=== PATIENT | female | born 1995 | race Caucasian/White ===

== ENCOUNTER 2017-06-25 13:23 | Emergency (ER) | payer SELFPAY ==
[2017-06-25 13:46] LABS: #Basophils 0.1 thou/uL (0.0-0.2); #Eosinphils 0.2 thou/uL (0.0-0.7); #Lymphocytes 1.9 thou/uL (1.20-3.40); #Monocytes 0.4 thou/uL (0.11-0.59); #Neutrophils 4.6 thou/uL (1.40-6.50); %Basophils 0.9 % (0.0-1.0); %Eosinophils 2.8 % (0.0-10.0); %Lymphocytes 25.9 % (21.0-51.0); %Monocytes 6.2 % (0.0-10.0); %Neutrophils 64.2 % (42.0-75.0); Hemoglobin 14.1 g/dL (12.0-16.0); Mean Corpuscular HGB CONC 34.8 g/dL (32.0-36.0); Mean Corpuscular Hemoglobin 30.7 pg (27.0-31.0); Mean Corpuscular Volume 88.1 fl (81.0-99.0); Mean Platelet Volume 6.5 fL (7.4-10.4); Platelet Count 277 thou/uL (130-400); RBC Distribution Width 11.9 % (11.5-14.5); Red Blood Cell (RBC) Count 4.59 mill/uL (4.20-5.40); White Blood Cell (WBC) Count 7.2 thou/uL (4.8-10.8)
[2017-06-25 14:10] LABS: ALT (SGPT) 9 U/L (8-55); AST (SGOT) 15 U/L (5-34); Albumin 4.4 g/dL (3.5-5.0); Alkaline Phosphatase 78 U/L (40-150); Anion Gap 12 mmol/L (10-20); BUN (Urea Nitrogen) 9 mg/dL (7.0-18.7); Bilirubin, Total 0.4 mg/dL (0.2-1.2); CK (CPK) 72 U/L (29-168); Calc. Creatinine Clearance 0 mL/min (70-130); Calcium 9.3 mg/dL (7.8-10.44); Carbon Dioxide 24 mmol/L (22-29); Chloride 104 mmol/L (98-107); Estimated GFR-MDRD Greater than 90; Globulin 2.6 g/dL (2.4-3.5); Glucose 89 mg/dL (70-105); Potassium 4.4 mmol/L (3.5-5.1); Sodium 136 mmol/L (136-145)
[2017-06-25 14:15] LABS: CKMB 0.9 ng/mL (0-6.6); Troponin I Less than 0.010 ng/mL (< 0.028)
--- NOTE | 2017-06-25 14:17 | RAD ---
CHEST 1 VIEW: Date: 06/25/17 HISTORY: Dizziness. Fall. COMPARISON: None. FINDINGS: Lungs are clear. No pneumothorax or effusion. Cardiac silhouette and mediastinal contour is within no rmal limits. IMPRESSION: No acute intrathoracic abnormality. POS: JOSEH
[2017-06-25 14:30] LABS: Bilirubin Negative (Negative); Blood, Urine Negative (Negative); Clarity CLEAR (Clear); Glucose, Urine (Dipstick) Negative (Negative); Leukocyte Negative (Negative); Nitrite Negative (Negative); Protein, Urine (Dipstick) Negative (Neg-Trace); Specific Gravity, Urine 1.013 (1.002-1.036); pH, Urine 6.5 (5.0-9.0)
[2017-06-25 14:31] LABS: Pregnancy Test - Urine (BHCG) Negative (Negative); Pregu Control Background? CLEAR/WHITE (CLR/WHITE); Pregu Control Bar Appear? YES (CONTROL BAR); Specific Gravity 1.013 (1.002-1.036)
== END 2017-06-25 15:35 | disposition home or self-care (01) ==
LOC: ERS 13:23
DX: R55 Syncope and collapse (principal); F17.210 Nicotine dependence, cigarettes, uncomplicated; E78.5 Hyperlipidemia, unspecified; Z71.6 Tobacco abuse counseling
CPT/HCPCS: 36415; 71045; 80053; 81003; 81025; 82550; 82553; 84484; 85025; 93005; 99406

== ENCOUNTER → 2018-08-30 | Day surgery (SDC) | payer OTHER ==
[~2018-08-30] MED LIST: Lactated Ringer's 1,000 ML IV SCH; Sodium Chloride 0.9% 1,000 ML IV SCH; cefTRIAXone\\ROCEPHIN 1 GM in Sodium Chloride 0.9% 100 ML IVPB SCH; hydrALAZINE 20 MG/ML VIAL SLOW IVP PRN
[2018-08-30 09:12] VITALS: BMI 31.5
[2018-08-30 09:14] VITALS: BP 110/72; TEMP 98.4
[2018-08-30 10:12] LABS: #Eosinphils 0.2 thou/uL (0.0-0.7); #Lymphocytes 1.5 thou/uL (1.20-3.40); #Monocytes 0.7 thou/uL (0.11-0.59); %Basophils 0.3 % (0.0-1.0); %Eosinophils 1.9 % (0.0-10.0); %Lymphocytes 14.5 % (21.0-51.0); %Monocytes 6.6 % (0.0-10.0); %Neutrophils 76.8 % (42.0-75.0); Hemoglobin 11.5 g/dL (12.0-16.0); Mean Corpuscular HGB CONC 33.9 g/dL (32.0-36.0); Mean Corpuscular Hemoglobin 30.4 pg (27.0-31.0); Mean Corpuscular Volume 89.6 fL (78.0-98.0); Mean Platelet Volume 7.4 fL (7.4-10.4); Platelet Count 257 thou/uL (130-400); RBC Distribution Width 12.6 % (11.5-14.5); Red Blood Cell (RBC) Count 3.78 mill/uL (4.20-5.40); White Blood Cell (WBC) Count 10.5 thou/uL (4.8-10.8)
[2018-08-30 10:24] LABS: Clarity Clear (Clear); Leukocyte Unable to Interpret (Negative); Nitrite Unable to Interpret (Negative)
[2018-08-30 10:25] LABS: Bilirubin Unable to Interpret (Negative); Blood, Urine Unable to Interpret (Negative); Glucose, Urine (Dipstick) Unable to Interpret mg/dL (Negative); Protein, Urine (Dipstick) Unable to Interpret mg/dL (Neg-Trace); Urobilinogen UNABLE TO INTERPRET mg/dL (Less than 2)
[2018-08-30 10:30] LABS: Anion Gap 15 mmol/L (10-20); BUN (Urea Nitrogen) 8 mg/dL (7.0-18.7); Calc. Creatinine Clearance 170 mL/min (70-130); Calcium 9.1 mg/dL (7.8-10.44); Carbon Dioxide 18 mmol/L (22-29); Chloride 108 mmol/L (98-107); Estimated GFR-MDRD Greater than 90; Glucose 87 mg/dL (70-105); Potassium 3.5 mmol/L (3.5-5.1); Sodium 137 mmol/L (136-145)
[2018-08-30 10:40] LABS: Bacteria/HPF 2+ HPF (None Seen); Squamous Epithelial 0-3 HPF (0-3)
--- NOTE | 2018-08-30 10:46 | ULT ---
Exam: Bilateral renal ultrasound HISTORY: History of and right-sided flank pain COMPARISON: CT the abdomen and pelvis dated February 21, 2010 FINDINGS: Right kidney: The right kidney demonstrates an normal cortical echotexture. There is mild right hydro nephrosis. Right kidney measurements: 10.4 x 6.3 x 6.4 cm. Left kidney: Normal cortical echotexture. No hydronephrosis Left kidney measurements: 11.9 x 4.9 x 5.6 cm. Urinary bladder: Normal mucosa. Right ureteral jet is not demonstrated. Left ureteral jet is demonstr ated. There is partial visualization of the intrauterine gestation. The head is in vertex presentation. IMPRESSION: Mild right hydronephrosis. There is nonvisualization of the normal right ureteral jet.
--- NOTE | 2018-08-30 14:36 | PRG ---
DATE OF SERVICE: 08/30/2018 PRIMARY OB: Dr. Stef Agudelo. CHIEF COMPLAINT: Dysuria, urgency, and back pain. HISTORY OF PRESENT ILLNESS: The patient is a 23-year-old, G1, P0 female with an intrauterine at 23 weeks, presenting to Labor and Delivery after being awoken from sleep with urinary urgency and frequency. The patient later in the morning had sudden onset back pain and came for evaluation. The patient denies fever, chills, nausea, and vomiting. The patient does report she was diagnosed of the urinary tract infection approximately 2 or 3 weeks ago and was placed on antibiotics at that time. The patient denies chest pain, shortness of breath, nausea, vomiting, diarrhea, constipation, change in vision, hearing, swelling, edema, chest pain, shortness of breath, hip problems, knee problems, muscle weakness, vaginal bleeding, leakage of fluid. PAST MEDICAL HISTORY: Migraines, history of ovarian cyst. PAST SURGICAL HISTORY: Negative. ALLERGIES: NO KNOWN DRUG ALLERGIES. MEDICATIONS: vitamins. SOCIAL HISTORY: Denies drug, alcohol, tobacco use. Does report former use prior to of cigarettes. OB LABS: Blood type is B positive. Antibody screen is negative. She is rubella nonimmune. RPR is nonreactive. Hepatitis B surface antigen nonreactive. HIV nonreactive. REVIEW OF SYSTEMS: Per HPI. PHYSICAL EXAMINATION: VITAL SIGNS: Blood pressure 100/55, heart rate of 72, respiratory rate 18, saturating 100% on room air, temperature 98.4. GENERAL: She appears to be in no acute distress. She is alert, oriented, cooperative, and pleasant to interact with. HEAD: Normocephalic, atraumatic. LUNGS: Clear to auscultation bilaterally. HEART: Regular rate and rhythm. ABDOMEN: Gravid, soft, nontender. EXTREMITIES: Nontender, nonedematous. She does not have any vertebral tenderness. She has some right-sided paravertebral tenderness and SI joint tenderness. Has equivocal CVA tenderness. heart tracing shows a fetus with heart tones in the 150s and appropriate for 23 weeks gestation. LABORATORY DATA: CBC shows white count of 10.5, hemoglobin 11.5, hematocrit 33.8, and platelets of 257,000, and neutrophil percentage 76.8. BMP; sodium of 137, potassium of 3.5, chloride of 108, creatinine of 0.58, glucose of 87. Urine with 11 to 20 RBCs, 4 to 6 white blood cells, 0 to 3 squamous cells, and 2+ bacteria. ASSESSMENT AND PLAN: The patient is a 23-year-old female with [id number] presenting with a history of urinary tract infection and now recurrent symptoms. Evidence supports a diagnosis of a recurrent urinary tract infection. The patient is at risk for developing pyelonephritis, though she does not have any overt symptoms at this time. We will be treating her with 1 g of Rocephin IV and 2 L of IV fluids, followed by a course of Duricef 1 g b.i.d. for 7 days. The patient will be discharged to home as she is not showing any acute signs or symptoms of concern. She has an appointment to see her primary OB, Dr. Agudelo, tomorrow for followup. The patient has been given counseled that should she experience fever, worsening symptoms to return. I have also explained the importance to follow up with the urine cultures that we sent today to confirm sensitivities. Fetus has a tracing appropriate for gestational age. I have discussed this pt with Dr Agudelo, her primary OB provider. Job ID: [id number]
== END ==
LOC: L&D/OP 08:40
PROVIDERS: ATTEND Obstetrics & Gynecology
DX: O23.02 Infections of kidney in pregnancy, second trimester (principal); N13.6 Pyonephrosis; O99.352 Diseases of the nervous system complicating pregnancy, second trimester; G43.909 Migraine, unspecified, not intractable, without status migrainosus; Z87.891 Personal history of nicotine dependence; Z87.42 Personal history of other diseases of the female genital tract; Z3A.23 23 weeks gestation of pregnancy
CPT/HCPCS: 76770; 80048; 81001; 85025; 87086; 96361; 96365; 99283; J0696; J3490

== ENCOUNTER 2018-12-20 16:49 | Inpatient (IN) | payer OTHER ==
[~2018-12-20 16:49] MED LIST changes: +Bupivacaine 0.25% HCL 30 ML VIAL ONE; -Lactated Ringer's 1,000 ML IV SCH; +Lidocaine 2% MPF 10 ML AMP (For Epidural Use) ONE; -Sodium Chloride 0.9% 1,000 ML IV SCH; -cefTRIAXone\\ROCEPHIN 1 GM in Sodium Chloride 0.9% 100 ML IVPB SCH; -hydrALAZINE 20 MG/ML VIAL SLOW IVP PRN
[2018-12-20] MEDS ORDERED: Ondansetron PF 4 MG/2 ML Vial IVP PRN (17:04)
[2018-12-20] MEDS ORDERED: Ibuprofen 800 MG TAB PO PRN (17:04)
[2018-12-20] MEDS ORDERED: Docusate 100 MG CAP PO PRN (17:04)
[2018-12-20] MEDS ORDERED: hydrALAZINE 20 MG/ML VIAL SLOW IVP PRN (17:04)
[2018-12-20] MEDS ORDERED: NS w/ Oxytocin 10 units 500 ML IV SCH (17:04)
[2018-12-20] MEDS ORDERED: Acetaminophen 500 MG TAB PO PRN (17:04)
[2018-12-20] MEDS ORDERED: HYDROcodone/Acetaminophen 5/325 mg Tablet PO PRN ×2 (17:04)
[2018-12-20] MEDS ORDERED: Diphenoxylate HCl/Atropine Tablet PO PRN ×2 (17:04)
[2018-12-20] MEDS ORDERED: Lidocaine 1% (PF) 30 ML VIAL SC PRN (17:04)
[2018-12-20] MEDS ORDERED: Promethazine HCl 25 MG/ML VIAL IM PRN (17:04)
[2018-12-20] MEDS ORDERED: Zolpidem Tartrate 5 MG TAB PO PRN (17:04)
[2018-12-20] MEDS ORDERED: NS / Oxytocin 40 units/1000ml 1,000 ML IV PRN (17:04)
[2018-12-20] MEDS ORDERED: Misoprostol 200 MCG TAB PR PRN (17:04)
[2018-12-20] MEDS ORDERED: Butorphanol Tartrate 1 MG/ML VIAL SLOW IVP PRN (17:04)
[2018-12-20 17:19] VITALS: BMI 35.9
[2018-12-20] MEDS: Lactated Ringer's 1,000 ML IV SCH (18:03)
[2018-12-20 18:27] LABS: Hemoglobin 10.1 g/dL (12.0-16.0); Mean Corpuscular HGB CONC 32.8 g/dL (32.0-36.0); Mean Corpuscular Volume 73.3 fL (78.0-98.0); Mean Platelet Volume 9.2 fL (7.4-10.4); Platelet Count 257 thou/uL (130-400); RBC Distribution Width 15.7 % (11.5-14.5); Red Blood Cell (RBC) Count 4.19 mill/uL (4.20-5.40); White Blood Cell (WBC) Count 7.7 thou/uL (4.8-10.8)
[2018-12-20] MEDS: Misoprostol 100 MCG TAB VAG SCH (18:31)
[2018-12-20 18:57] LABS: HBSAg Index 0.16 S/CO (0-0.99); Hep B Surf Ag Non-Reactive S/CO (NonReactive)
[2018-12-20 19:00] LABS: Syphilis Antibody Nonreactive (Nonreactive); Syphilis Antibody Index 0.04 S/CO (<1.00 Non-Reactive)
[2018-12-21] MEDS: NS w/ Oxytocin 10 units 500 ML IV SCH (04:20)
[2018-12-21] MEDS: Misoprostol 100 MCG TAB VAG SCH ×5 (07:39→19:24)
[2018-12-21] MEDS ORDERED: Fentanyl 4 mcg/Bup 0.1% Cadd 100 ML ONE ×2 (08:19→16:03)
[2018-12-21] MEDS: Lactated Ringer's 1,000 ML IV SCH ×2 (11:13→11:14)
[2018-12-21] MEDS ORDERED: Acetaminophen 325 MG TAB PO PRN (13:26)
[2018-12-21] MEDS ORDERED: diphenhydrAMINE 50 MG/ML VIAL IVP PRN (13:26)
[2018-12-21] MEDS ORDERED: ePHEDrine/0.9% NaCl/PF SYRINGE 50 mg/10 ml SLOW IVP PRN (13:26)
[2018-12-21] MEDS ORDERED: Naloxone HCl 0.4 mg/ml Vial IVP PRN ×2 (13:26)
[2018-12-21] MEDS ORDERED: Promethazine HCl 25 MG/ML VIAL IM PRN (13:26)
[2018-12-21] MEDS ORDERED: Ondansetron PF 4 MG/2 ML Vial IVP PRN ×2 (13:26→19:43)
[2018-12-21] MEDS ORDERED: Lactated Ringer's 500 ML IV PRN (13:26)
[2018-12-21] MEDS ORDERED: Communication Order-Pharmacy FS SCH (13:30)
[2018-12-21] MEDS ORDERED: Fentanyl 4 mcg/Bupivacaine 0.1% Cassette 100 ML EPIDURAL SCH (13:30)
[2018-12-21] MEDS ORDERED: Fentanyl 100 MCG/2 ML VIAL ONE (15:36)
[2018-12-21] MEDS: NS / Oxytocin 40 units/1000ml 1,000 ML IV SCH ×2 (19:20→21:50)
[2018-12-21] MEDS ORDERED: hydrALAZINE 20 MG/ML VIAL SLOW IVP PRN (19:43)
[2018-12-21] MEDS ORDERED: Zolpidem Tartrate 5 MG TAB PO PRN (19:43)
[2018-12-21] MEDS ORDERED: diphenhydrAMINE 25 MG CAP PO PRN (19:43)
[2018-12-21] MEDS ORDERED: Lanolin Ointment 7 GM TUBE TOP PRN (19:43)
[2018-12-21] MEDS ORDERED: Misoprostol 200 MCG TAB VAG PRN (19:43)
[2018-12-21] MEDS ORDERED: Acetaminophen/Codeine 30-300mg Tablet PO PRN ×2 (19:43)
[2018-12-21] MEDS ORDERED: Bisacodyl 10 MG SUPP PR PRN (19:43)
[2018-12-21] MEDS ORDERED: Milk Of Magnesia 30 ML UDCUP PO PRN (19:43)
[2018-12-21] MEDS ORDERED: Benzocaine-Menthol 82.5 ML CAN TOP PRN (19:43)
[2018-12-21] MEDS ORDERED: Preparation H Ointment 28 GM TUBE PR PRN (19:43)
[2018-12-21] MEDS: Ibuprofen 800 MG TAB PO SCH (23:57)
[2018-12-21] MEDS: Docusate Calcium (SURFAK) 240 MG CAP PO SCH (23:57)
[2018-12-22] MEDS: Lactated Ringer's 1,000 ML IV SCH (07:23)
[2018-12-22] MEDS: Misoprostol 100 MCG TAB VAG SCH (07:23)
[2018-12-22] MEDS: NS w/ Oxytocin 10 units 500 ML IV SCH (07:23)
[2018-12-22] MEDS: Prenatal Vitamin 1 TAB PO SCH (08:13)
[2018-12-22] MEDS: Ferrous Sulfate 325 MG TAB PO SCH ×2 (08:13→17:35)
[2018-12-22] MEDS: Ibuprofen 800 MG TAB PO SCH ×2 (08:13→17:07)
[2018-12-22] MEDS: Docusate Calcium (SURFAK) 240 MG CAP PO SCH ×2 (08:14→21:20)
[2018-12-22] MEDS ORDERED: Adacel (T-DAP) 0.5 ML SYRINGE IM ONE (09:00)
[2018-12-23] MEDS: Ibuprofen 800 MG TAB PO SCH ×2 (00:45→08:37)
[2018-12-23 08:22] VITALS: BP 127/83; TEMP 97.9
[2018-12-23] MEDS: Docusate Calcium (SURFAK) 240 MG CAP PO SCH (08:36)
[2018-12-23] MEDS: Prenatal Vitamin 1 TAB PO SCH ×2 (08:36→08:38)
[2018-12-23] MEDS: Ferrous Sulfate 325 MG TAB PO SCH (08:37)
== END 2018-12-21 13:15 | disposition home or self-care (01) | DRG 807 ==
LOC: L&D 16:49 → 3SW 12-21 22:53
PROVIDERS: ADMIT Obstetrics & Gynecology; ATTEND Obstetrics & Gynecology
PROC: 10E0XZZ Delivery of Products of Conception, External Approach (ICD-10-PCS; principal; 2018-12-20)
PROC: 3E033VJ Introduction of Other Hormone into Peripheral Vein, Percutaneous Approach (ICD-10-PCS; 2018-12-20)
DX: O80 Encounter for full-term uncomplicated delivery (principal); Z37.0 Single live birth; Z3A.39 39 weeks gestation of pregnancy
CPT/HCPCS: 51702; 85027; 86780; 86850; 86900; 86901; 87340; J2001; J2405; J2590; J3010; S0020

== ENCOUNTER 2023-12-13 14:01 | Outpatient (CLI) | payer OTHER, MEDICAID | END 2023-12-13 14:02 | disposition home or self-care (01) | LOC: BICULT 14:01 | PROVIDERS: ATTEND Family Medicine | DX: Z34.82 Encounter for supervision of other normal pregnancy, second trimester (principal); Z3A.22 22 weeks gestation of pregnancy | CPT/HCPCS: 76805 ==